=== PATIENT | female | born 2000 | race Hispanic/Latino ===

== ENCOUNTER → 2025-07-10 | Day surgery (SDC) | payer OTHER ==
[~2025-07-10] MED LIST: ACETAMINOPHEN 1000 MG/100 ML 100 ML IV ONE; DEXAMETHASONE SOD PHOS INJ 4 MG/ML SDV ONE; FENTANYL CITRATE/PF 100MCG/2 ML INJ ONE; IBUPROFEN400 MG PO; LIDOCAINE HCL 2% LOCAL INJ 5 ML SDV VIAL INJ ONE; ONDANSETRON HCL INJ 2MG/ML 2ML 2 MG/ML VIAL ONE; PROPOFOL IV EMULSION 10 MG/ML 20 ML VIAL ONE; SEVOFLURANE INHAL SOLN 250 ML PEN BTL ONE
[2025-07-10] MEDS: LACTATED RINGER'S 1,000 ML ONE (12:37)
[2025-07-10 13:38] VITALS: TEMP 97.3
[2025-07-10] MEDS: FENTANYL CITRATE/PF 100MCG/2 ML INJ ONE (13:45)
[2025-07-10] MEDS: HYDROCODONE/APAP 7.5MG-325MG 1 EA TAB ONE (14:40)
[2025-07-10 15:10] VITALS: BP 135/89; PULSE 101; RESP 16; O2SAT 96
== END | disposition home or self-care (01) ==
LOC: OR 10:24
PROVIDERS: ATTEND Specialist
DX: S82.61XA Displaced fracture of lateral malleolus of right fibula, initial encounter for closed fracture (principal); S93.431A Sprain of tibiofibular ligament of right ankle, initial encounter; E66.01 Morbid (severe) obesity due to excess calories; F41.9 Anxiety disorder, unspecified; W01.0XXA Fall on same level from slipping, tripping and stumbling without subsequent striking against object, initial encounter; Z91.010 Allergy to peanuts; Z79.1 Long term (current) use of non-steroidal anti-inflammatories (NSAID); Z68.36 Body mass index [BMI] 36.0-36.9, adult
CPT/HCPCS: 27792; 27829; 76000; 81025; C1713 ×7; J0131; J0690; J1100; J2003; J2405; J2704; J3010; J7121